=== PATIENT | male | born 1990 | race Caucasian/White ===

== ENCOUNTER 2020-07-13 23:54 | Emergency (ER) | payer OTHER ==
[~2020-07-13] VITALS: Ht 182.9 cm; Wt 109.8 kg
[2020-07-14] VITALS: BP 132/78
--- NOTE | 2020-07-14 00:08 | NUR ---
PT TAKEN TO BED 4
--- NOTE | 2020-07-14 00:17 | NUR ---
Dr. Arellano examining patient.
--- NOTE | 2020-07-14 00:21 | NUR ---
30 Y/O M PRESENTS TO ED C/O LT PINKY PAIN S/P FALL IN THE SHOWER TODAY. PT STATES THAT HE SLIPPED IN THE BATHROOM AND MUST HAVE HIT HIS LEFT PINKY. PT STATES THAT HE ALSO HIT HIS HEAD ON THE BATHROOM WALL UPON FALLING. DENIES LOC. +BRUISE, +SWELLING. PT ALSO C/O LT FOOT PAIN FROM AN OLD WOUND X 2 WEEKS AGO. WOUND LOOKS RED, HAS PUS LIKE IN THE MIDDLE OF THE WOUND. BED LOCKED AND IN LOWEST POSITION, SIDE RAIL UP X1. WILL CONTINUE TO MONITOR. MHX: DENIES NKA
[2020-07-14] MEDS ORDERED: KETOROLAC 60 MG/2 ML VIAL IM ONE (00:25)
--- NOTE | 2020-07-14 00:28 | NUR ---
X-Ray at bedside.
[2020-07-14] MEDS ORDERED: BACITRACIN OINT 500 UNITS/GM PKT TP ONE (01:25)
[2020-07-14 01:45] VITALS: BP 132/78
--- NOTE | 2020-07-14 01:46 | NUR ---
Patient discharged with v/s stable. Written and verbal after care instructions given and explained. Patient alert, oriented and verbalized understanding of instructions. Ambulatory with steady gait. All questions addressed prior to discharge. ID band removed. Patient advised to follow up with PMD. Rx of MOTRIN AND NEOSPORIN given. Patient educated on indication of medication including possible reaction and side effects. Opportunity to ask questions provided and answered.
== END 2020-07-14 01:46 | disposition home or self-care (01) ==
LOC: MED 23:54
DX: S63.617A Unspecified sprain of left little finger, initial encounter (principal); R03.0 Elevated blood-pressure reading, without diagnosis of hypertension; W18.39XA Other fall on same level, initial encounter; Y93.89 Activity, other specified; Y92.89 Other specified places as the place of occurrence of the external cause; Y99.8 Other external cause status
CPT/HCPCS: 73130; 96372; 99283; J1885; Q0092